=== PATIENT | female | born 1990 | race American Indian/Alaskan Native ===

== ENCOUNTER 2016-09-19 22:39 | Emergency (ER) | payer MEDICAID ==
[2016-09-19 23:19] VITALS: BP 139/99
--- NOTE | 2016-09-21 04:48 | ED Elopement Review ---
ED Pt Elopement review - Call Back decision Pt Call Back Decision: No action required
== END 2016-09-20 00:45 | disposition left against medical advice (07) ==
LOC: ED 22:39
DX: R10.9 Unspecified abdominal pain (principal); Z53.21 Procedure and treatment not carried out due to patient leaving prior to being seen by health care provider

== ENCOUNTER 2017-01-21 20:05 | Emergency (ER) | payer MEDICAID, OTHER ==
[2017-01-21 20:28] VITALS: BP 161/94
--- NOTE | 2017-01-21 22:43 | Emergency Department Report ---
ED Recheck HPI - General Chief Complaint: Recheck/Abnormal Lab/Rx Stated Complaint: PREG CONFIRMATION/ABD PAIN Time Seen by Provider: 01/21/17 22:22 Source: patient Mode of arrival: Ambulatory Limitations: No Limitations - History of Present Illness Initial Comments: 26-year-old -N[place]e female comes in reporting that [facility] to state that she was . Patient was last seen here in 11/05/2016 which had a test that showed less than 2mIU/mL. Patient reports her last menstrual period was 08/27/2016. She does have a past medical history of diabetes decreased kidney function she had a kidney biopsy in 2014. She is currently taking metformin. Patient has no other complaints. - Related Data Previous Rx's Medication Instructions Recorded Last Taken Type Sulfamethoxazole/Trimethoprim 1 each PO BID #14 tablet 06/17/14 Unknown Rx [Bactrim Ds] metFORMIN [Glucophage] 500 mg PO BID #60 tablet 06/23/14 Unknown Rx ALBUTEROL Inhaler [ProAir HFA 2 puff IH QID PRN #1 inhalation 08/23/14 Unknown Rx Inhaler] Amoxicillin [Trimox CAP] 500 mg PO Q8H #30 capsule 08/23/14 Unknown Rx Fluticasone Propionate [Flonase] 2 sprays NS QDAY #1 bottle 08/23/14 Unknown Rx LORazepam [Ativan] 1 mg PO QHS #10 tab 08/23/14 Unknown Rx Loratadine [Claritin] 10 mg PO DAILY #30 tablet 08/23/14 Unknown Rx Prednisone 20 mg PO DAILY #5 tablet 08/23/14 Unknown Rx Ibuprofen [Motrin] 800 mg PO Q8H #30 tablet 01/05/15 Unknown Rx traMADol [Ultram 50 MG tab] 50 mg PO Q6HR PRN #20 tablet 01/05/15 Unknown Rx Naproxen [Naprosyn TAB] 500 mg PO BID PRN #30 tablet 04/22/15 Unknown Rx Sulfamethoxazole/Trimethoprim 1 each PO BID #10 tablet 04/22/15 Unknown Rx [Bactrim DS TAB] metFORMIN [Glucophage] 500 mg PO BID #60 tablet 04/22/15 Unknown Rx HYDROcodone/APAP 5-325 [[place] 1 each PO Q6HR PRN #10 tablet 05/04/15 Unknown Rx 5/325] Ketorolac [Toradol] 10 mg PO Q6H PRN #20 tablet 05/06/16 Unknown Rx oxyCODONE [Roxicodone] 5 mg PO Q6HR PRN #20 tablet 05/06/16 Unknown Rx Ibuprofen [Motrin] 600 mg PO Q8H PRN #30 tablet 11/05/16 Unknown Rx Ondansetron [Zofran Odt] 4 mg PO QID PRN #20 tab.rapdis 11/05/16 Unknown Rx Allergies Allergy/AdvReac Type Severity Reaction Status Date / Time cranberry Allergy Unknown Verified 04/22/15 16:12 peanut oil Allergy Shortness Verified 11/02/15 08:39 of Breath blood thinners AdvReac Swelling Uncoded 11/02/15 08:39 ED Review of Systems ROS: Stated complaint: PREG CONFIRMATION/ABD PAIN Other details as noted in HPI Constitutional: denies: chills, fever Eyes: denies: eye pain, eye discharge, vision change ENT: denies: ear pain, throat pain Respiratory: denies: cough, shortness of breath, wheezing Cardiovascular: denies: chest pain, palpitations Endocrine: no symptoms reported Gastrointestinal: denies: abdominal pain, nausea, diarrhea Genitourinary: denies: urgency, dysuria, discharge Musculoskeletal: denies: back pain, joint swelling, arthralgia Skin: denies: rash, lesions Neurological: denies: headache, weakness, paresthesias ED Past Medical Hx - Past Medical History Previous Medical History?: Yes Hx Hypertension: Yes Hx Diabetes: Yes (NIDDM) Hx Asthma: Yes Additional medical history: decreased kidney function - Surgical History Past Surgical History?: Yes Additional Surgical History: kidney bx 2014 - Social History Smoking Status: Current Every Day Smoker Substance Use Type: None - Medications Home Medications: Home Medications Medication Instructions Recorded Confirmed Last Taken Type Sulfamethoxazole/Trimethoprim 1 each PO BID #14 tablet 06/17/14 Unknown Rx [Bactrim Ds] metFORMIN [Glucophage] 500 mg PO BID #60 tablet 06/23/14 Unknown Rx ALBUTEROL Inhaler [ProAir HFA 2 puff IH QID PRN #1 inhalation 08/23/14 Unknown Rx Inhaler] Amoxicillin [Trimox CAP] 500 mg PO Q8H #30 capsule 08/23/14 Unknown Rx Fluticasone Propionate [Flonase] 2 sprays NS QDAY #1 bottle 08/23/14 Unknown Rx LORazepam [Ativan] 1 mg PO QHS #10 tab 08/23/14 Unknown Rx Loratadine [Claritin] 10 mg PO DAILY #30 tablet 08/23/14 Unknown Rx Prednisone 20 mg PO DAILY #5 tablet 08/23/14 Unknown Rx Ibuprofen [Motrin] 800 mg PO Q8H #30 tablet 01/05/15 Unknown Rx traMADol [Ultram 50 MG tab] 50 mg PO Q6HR PRN #20 tablet 01/05/15 Unknown Rx Naproxen [Naprosyn TAB] 500 mg PO BID PRN #30 tablet 04/22/15 Unknown Rx Sulfamethoxazole/Trimethoprim 1 each PO BID #10 tablet 04/22/15 Unknown Rx [Bactrim DS TAB] metFORMIN [Glucophage] 500 mg PO BID #60 tablet 04/22/15 Unknown Rx HYDROcodone/APAP 5-325 [[place] 1 each PO Q6HR PRN #10 tablet 05/04/15 Unknown Rx 5/325] Ketorolac [Toradol] 10 mg PO Q6H PRN #20 tablet 05/06/16 Unknown Rx oxyCODONE [Roxicodone] 5 mg PO Q6HR PRN #20 tablet 05/06/16 Unknown Rx Ibuprofen [Motrin] 600 mg PO Q8H PRN #30 tablet 11/05/16 Unknown Rx Ondansetron [Zofran Odt] 4 mg PO QID PRN #20 tab.rapdis 11/05/16 Unknown Rx ED Physical Exam - General Limitations: No Limitations General appearance: alert, in no apparent distress - Head Head exam: Present: atraumatic, normocephalic - Eye Eye exam: Present: normal appearance - ENT ENT exam: Present: mucous membranes moist - Neck Neck exam: Present: normal inspection - Respiratory Respiratory exam: Present: normal lung sounds bilaterally. Absent: respiratory distress - Cardiovascular Cardiovascular Exam: Present: regular rate, normal rhythm. Absent: systolic murmur, diastolic murmur, rubs, gallop - GI/Abdominal GI/Abdominal exam: Present: soft, normal bowel sounds ED Course Vital Signs 01/21/17 20:21 Temperature 98.9 F Pulse Rate 110 H Respiratory 20 Rate Blood Pressure 161/94 Blood Pressure 161/94 [Left] O2 Sat by Pulse 97 Oximetry Critical care attestation.: If time is entered above; I have spent that time in minutes in the direct care of this critically ill patient, excluding procedure time. ED Disposition Clinical Impression: test negative Disposition: DISCHARGED TO HOME OR SELFCARE Is pt being admited?: No Does the pt Need Aspirin: No Condition: Stable Additional Instructions: Your test is negative. I advised to follow-up with her primary care provider for evaluation of your diabetes. You have glucose in your urine. Referrals: JACK MARIE MD [Primary Care Provider] - 3-5 Days Forms: Work/School Release Form(ED)
[2017-01-21 23:11] LABS: Bacteria,Urine 1+ /HPF (Negative); Bilirubin,Urine NEG (Negative); Blood,Urine NEG (Negative); Ketones,Urine NEG (Negative); Leukocyte Esterase,Urine MOD (Negative); Nitrite,Urine NEG (Negative); Urobilinogen,Urine < 2.0 mg/dL (<2.0)
[2017-01-21 23:13] LABS: Protein,Urine >500 mg/dL (Negative)
== END 2017-01-21 23:34 | disposition home or self-care (01) ==
LOC: ED 20:05
DX: Z32.02 Encounter for pregnancy test, result negative (principal); I10 Essential (primary) hypertension; E11.9 Type 2 diabetes mellitus without complications; J45.909 Unspecified asthma, uncomplicated; Z91.018 Allergy to other foods; Z88.8 Allergy status to other drugs, medicaments and biological substances; F17.200 Nicotine dependence, unspecified, uncomplicated
CPT/HCPCS: 81001; 81025; 99283

== ENCOUNTER 2018-02-14 22:25 | Emergency (ER) | payer SELFPAY ==
[2018-02-14 23:03] VITALS: BP 143/91
== END 2018-02-15 06:00 | disposition left against medical advice (07) ==
LOC: ED 22:25
DX: J45.909 Unspecified asthma, uncomplicated (principal); Z53.21 Procedure and treatment not carried out due to patient leaving prior to being seen by health care provider

== ENCOUNTER 2019-02-26 22:50 | Emergency (ER) | payer MEDICAID, OTHER ==
[2019-02-26 23:38] LABS: Basophils % (Auto) 0.3 % (0.0-1.8); Eosinophils # (Auto) 0.3 K/mm3 (0.0-0.4); Eosinophils % (Auto) 3.4 % (0.0-4.3); Hematocrit 36.9 % (30.3-42.9); Hemoglobin 12.1 gm/dl (10.1-14.3); Lymphocytes # (Auto) 2.7 K/mm3 (1.2-5.4); Lymphocytes % (Auto) 30.7 % (13.4-35.0); Mean Corpuscular HGB Conc 33 % (30-34); Mean Corpuscular Volume 75 fl (79-97); Monocytes # (Auto) 0.4 K/mm3 (0.0-0.8); Monocytes % (Auto) 4.3 % (0.0-7.3); Platelet Count 244 K/mm3 (140-440); Red Blood Count 4.92 M/mm3 (3.65-5.03); Red Cell Distribution Width 16.9 % (13.2-15.2)
[2019-02-26 23:57] LABS: Calcium 9.1 mg/dL (8.4-10.2)
[2019-02-27] MEDS ORDERED: HumuLIN R IV ONE (01:07)
[2019-02-27] MEDS ORDERED: NACL 0.9% 1000 ML 1,000 ML IV ONE (01:07)
--- NOTE | 2019-02-27 01:44 | Emergency Department Report ---
HPI - General Chief Complaint: Hyperglycemia Time Seen by Provider: 02/27/19 01:06 - HPI HPI: 28-year-old female presents to the emergency department with complaint of hyperglycemia. The patient has a history of insulin dependent diabetes but has been out of her medication over the past 3 days. The patient is on glipizide, Novolin 70/30 and Novolin R. The 70/30 she takes 25 units at night and the Novolin R she takes 4 units as needed throughout the day. She was checking her blood sugar earlier today and found it to be almost 400. She does admit to some increased urination and thirst. She does not have a primary care physician at this time. Patient did state that she took 12 units of her Novolin R in the morning and then 16 units at about 2 PM to try and treat her hyperglycemia. ED Past Medical Hx - Past Medical History Previous Medical History?: Yes Hx Hypertension: Yes Hx Diabetes: Yes (NIDDM) Hx Asthma: Yes Additional medical history: decreased kidney function, HPV, Herpes 2, - Surgical History Past Surgical History?: Yes Additional Surgical History: kidney bx 2014 - Social History Smoking Status: Never Smoker Substance Use Type: None - Medications Home Medications: Home Medications Medication Instructions Recorded Confirmed Last Taken Type Sulfamethoxazole/Trimethoprim 1 each PO BID #14 tablet 06/17/14 Unknown Rx [Bactrim Ds] metFORMIN [Glucophage] 500 mg PO BID #60 tablet 06/23/14 Unknown Rx ALBUTEROL Inhaler (OR & NICU) 2 puff IH QID PRN #1 inhalation 08/23/14 Unknown Rx [ProAir HFA Inhaler] Amoxicillin [Trimox CAP] 500 mg PO Q8H #30 capsule 08/23/14 Unknown Rx Fluticasone Propionate [Flonase] 2 sprays NS QDAY #1 bottle 08/23/14 Unknown Rx LORazepam [Ativan] 1 mg PO QHS #10 tab 08/23/14 Unknown Rx Loratadine [Claritin] 10 mg PO DAILY #30 tablet 08/23/14 Unknown Rx predniSONE [Prednisone] 20 mg PO DAILY #5 tablet 08/23/14 Unknown Rx Ibuprofen [Motrin] 800 mg PO Q8H #30 tablet 01/05/15 Unknown Rx traMADol [Ultram 50 MG tab] 50 mg PO Q6HR PRN #20 tablet 01/05/15 Unknown Rx Naproxen [Naprosyn TAB] 500 mg PO BID PRN #30 tablet 04/22/15 Unknown Rx Sulfamethoxazole/Trimethoprim 1 each PO BID #10 tablet 04/22/15 Unknown Rx [Bactrim DS TAB] metFORMIN [Glucophage] 500 mg PO BID #60 tablet 04/22/15 Unknown Rx HYDROcodone/APAP 5-325 [[place] 1 each PO Q6HR PRN #10 tablet 05/04/15 Unknown Rx 5/325] Ketorolac [Toradol] 10 mg PO Q6H PRN #20 tablet 05/06/16 Unknown Rx oxyCODONE [Roxicodone] 5 mg PO Q6HR PRN #20 tablet 05/06/16 Unknown Rx Ibuprofen [Motrin] 600 mg PO Q8H PRN #30 tablet 11/05/16 Unknown Rx Ondansetron [Zofran Odt] 4 mg PO QID PRN #20 tab.rapdis 11/05/16 Unknown Rx Insulin NPH Hum/Reg Insulin Hm 25 unit SQ QPM #1 vial 02/27/19 Unknown Rx [Novolin 70-30 100 Unit/ml Vial] Insulin Regular, Human [Novolin R] 4 unit SQ QAC #1 vial 02/27/19 Unknown Rx ED Review of Systems ROS: Stated complaint: HIGH BLOOD SUGAR Other details as noted in HPI Comment: All other systems reviewed and negative Constitutional: denies: chills, fever Eyes: denies: eye pain, vision change ENT: denies: ear pain, throat pain Respiratory: denies: cough, shortness of breath Cardiovascular: denies: chest pain, palpitations Endocrine: increased thirst, increased urine Gastrointestinal: denies: abdominal pain, vomiting Genitourinary: frequency. denies: dysuria Musculoskeletal: denies: back pain, arthralgia Skin: denies: rash, lesions Neurological: denies: headache, weakness Physical Exam - Physical Exam Vital Signs: Vital Signs 02/26/19 02/26/19 02/26/19 22:53 22:54 23:01 Temperature 98.7 F 98.7 F Pulse Rate 99 H 102 H Respiratory 20 19 18 Rate Blood Pressure 175/111 175/111 O2 Sat by Pulse 100 99 98 Oximetry Physical Exam: GENERAL: The patient is well-developed well-nourished. HENT: Normocephalic. Atraumatic. Patient has moist mucous membranes. EYES: Extraocular motions are intact. NECK: Supple. Trachea is midline. CHEST/LUNGS: Clear to auscultation. There is no respiratory distress noted. HEART/CARDIOVASCULAR: Regular. There is no tachycardia. There is no murmur. ABDOMEN: Abdomen is soft, nontender. Patient has normal bowel sounds. There is no abdominal distention. SKIN: Skin is warm and dry. NEURO: The patient is awake, alert, and oriented. The patient is cooperative. The patient has no focal neurologic deficits. The patient has normal speech. MUSCULOSKELETAL: There is no tenderness or deformity. There is no limitation range of motion. There is no evidence of acute injury. ED Course Vital Signs 02/26/19 02/26/19 02/26/19 22:53 22:54 23:01 Temperature 98.7 F 98.7 F Pulse Rate 99 H 102 H Respiratory 20 19 18 Rate Blood Pressure 175/111 175/111 O2 Sat by Pulse 100 99 98 Oximetry ED Medical Decision Making - Lab Data Result diagrams: 02/26/19 23:14 02/26/19 23:14 - Medical Decision Making Patient presents to the emergency department with a complaint of hyperglycemia and medication noncompliance. She does not appear to be in diabetic ketoacidosis as there is no elevation in the anion gap and no venous acidosis. She has a blood sugar of about 415. The patient was given a liter of IV fluid and a dose of IV insulin. The repeat Accu-Chek shows that has gone down slightly but still is high 300s. I discussed with patient the need for another round of IV fluid and IV insulin. However the patient is refusing to stay any longer and says that she does not have the money to take a taxi and the car that she drove needs to be picked up by a family member. I discussed with patient that leaving at this time without further treatment of her hyperglycemia may lead to worsening hyperglycemia, diabetic ketoacidosis, altered mental status, coma or even . The patient is awake and alert and has a normal decision making capacity and understands the risks and has still decided to leave AGAINST MEDICAL ADVICE. With that being said, I have still written for the patient to have a refill of her insulin so she can try to manage it at home. She says that she does not necessarily have the money to fill the medication. She has been given some referrals for local primary care clinics in the area. She understands that she can return to the emergency department if she changes her mind about further treatment, has any worsening of her symptoms, or with any acute distress. - Differential Diagnosis DKA, HHNK, Diabetic hyperglycemia Critical Care Time: No Critical care attestation.: If time is entered above; I have spent that time in minutes in the direct care of this critically ill patient, excluding procedure time. ED Disposition Clinical Impression: Hyperglycemia Uncontrolled diabetes mellitus Qualifiers: Diabetes mellitus type: type 1 Glycemic state: with hyperglycemia Qualified Code(s): E10.65 - Type 1 diabetes mellitus with hyperglycemia Hypertension Qualifiers: Hypertension type: essential hypertension Qualified Code(s): I10 - Essential (primary) hypertension Disposition: LEFT AGAINST MED ADVICE Is pt being admited?: No Condition: Fair Instructions: Hypertension (ED), Diabetic Hyperglycemia (ED) Additional Instructions: Return to the emergency department immediately if you change your mind about further evaluation and treatment of your hyperglycemia, with any acute distress. Try and stay away from foods that are high in sugar, carbohydrates and starches. Keep a blood sugar log. Prescriptions: Insulin NPH Hum/Reg Insulin Hm [Novolin 70-30 100 Unit/ml Vial] 25 unit SQ QPM #1 vial Insulin Regular, Human [Novolin R] 4 unit SQ QAC #1 vial Referrals: [facility] [place] [Outside] - 3-[address] [facility] [Outside] - 3-5 Days [facility] [Outside] - 3-[address] [facility] [Outside] - 3-5 Days Forms: AMA Form Time of Disposition: 03:22
[2019-02-27 02:41] LABS: Bilirubin,Urine NEG (Negative); Blood,Urine LG (Negative); Color,Urine Straw (Yellow); Mucus,Urine FEW /HPF; Urobilinogen,Urine < 2.0 mg/dL (<2.0)
[2019-02-27 03:15] VITALS: BP 166/91
== END 2019-02-27 03:15 | disposition left against medical advice (07) ==
LOC: ED 22:50
DX: E10.65 Type 1 diabetes mellitus with hyperglycemia (principal); I10 Essential (primary) hypertension; J45.909 Unspecified asthma, uncomplicated; Z79.899 Other long term (current) drug therapy; Z79.4 Long term (current) use of insulin; Z91.010 Allergy to peanuts; Z91.018 Allergy to other foods; Z88.8 Allergy status to other drugs, medicaments and biological substances
CPT/HCPCS: 36415; 80048; 81001; 82805; 82962; 84703; 85025; 96374; 99283; J7030; 96361; J1815